=== PATIENT | male | born 1995 | race Caucasian/White ===

== ENCOUNTER 2018-04-12 19:52 | Emergency (ER) | payer SELFPAY ==
[~2018-04-12] VITALS: Ht 185.4 cm; Wt 79.5 kg
[~2018-04-12 19:52] MED LIST: BENZONATATE100 MG PO; CEPHALEXIN500 M1 PO; DOXYCYCLINE 10100 MG PO; FLEXERIL 1010 MG/TAB PO; IBU800 M1 PO; LORTAB 5/500 501 TAB PO; NAPROSYN500 MG PO; NO HOME MEDICATIONS; NORCO 325 MG-51 TAB PO; NORCO 325 MG-7.1 TAB PO; PRILOSEC 20MG20 MG PO; TYLENOL W/COD1 UDTAB PO; VICODIN 5/5001 UDTAB PO; ZITHROMAX Z PA250 MG PO; ZOFRAN ODT4 MG PO
[2018-04-12 20:43] LABS: COLLECTION METHOD CLEAN CATCH
[2018-04-12 20:49] LABS: PH 6 (5-8); SQUAMOUS EPITHELIAL 0-2 /hpf; URINE APPEARANCE Clear; URINE BACTERIA None Seen /hpf; URINE BILIRUBIN Negative (NEGATIVE); URINE BLOOD Negative (NEGATIVE); URINE COLOR Yellow; URINE GLUCOSE Negative (NEGATIVE); URINE KETONE Negative (NEGATIVE); URINE LEUKOCYTE ESTERASE Negative (NEGATIVE); URINE NITRATE Negative (NEGATIVE); URINE PROTEIN(semi-quant) Negative (NEGATIVE); URINE RBC 0-2 /hpf; URINE UROBILINOGEN Negative (NEGATIVE)
[2018-04-12] MEDS ORDERED: NORCO 325 MG-7.1 TAB PO (21:37)
[2018-04-12 22:13] VITALS: BP 142/68; PULSE 92; TEMP 98.5
== END 2018-04-12 22:05 | disposition home or self-care (01) ==
LOC: COL.ER 19:52
PROVIDERS: Nurse Practitioner
DX: S20.212A Contusion of left front wall of thorax, initial encounter (principal); S30.1XXA Contusion of abdominal wall, initial encounter; F17.210 Nicotine dependence, cigarettes, uncomplicated; W22.8XXA Striking against or struck by other objects, initial encounter; Y92.481 Parking lot as the place of occurrence of the external cause
CPT/HCPCS: A9284; J1885